=== PATIENT | male | born 1975 | race Caucasian/White ===

== ENCOUNTER → 2021-02-26 08:27 | Outpatient (CLI) | payer MEDICAID, SELFPAY ==
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
== END ==
PROVIDERS: PCP Emergency Medicine; Visit Provider Emergency Medicine
DX: M54.2 Cervicalgia (principal); M54.10 Radiculopathy, site unspecified
CPT/HCPCS: 72141; 76376